=== PATIENT | female | born 1990 | race Caucasian/White ===

== ENCOUNTER 2020-02-09 15:12 | Emergency (ER) | payer OTHER, SELFPAY ==
[2020-02-09 15:16] VITALS: BP 126/78; PULSE 110; RESP 19; TEMP 36.1; O2SAT 98; BMI 29.9
[2020-02-09 15:35] VITALS: BP 126/78; PULSE 110; RESP 19; TEMP 36.1; O2SAT 98; O2SAT 99
--- NOTE | 2020-02-09 15:35 | EKG12_ITS ---
Test Reason : CP Blood Pressure : / mmHG Vent. Rate : 102 BPM Atrial Rate : 102 BPM P-R Int : 114 ms QRS Dur : 084 ms QT Int : 348 ms P-R-T Axes : 020 033 038 degrees QTc Int : 453 ms Sinus tachycardia Otherwise normal ECG Confirmed by PRADIP PRASAD, SABINE ([id number]), scientific editor NINA HOBBS ([id number]) on 02/14/2020 9:20:02 AM Referred By: CARLOS Confirmed By:SABINE MOSELEY MD
--- NOTE | 2020-02-09 15:36 | ED.VIS.GEN ---
History of Present Illness Chief Complaint: Shortness of Breath Informant: Patient Onset: Days Context: Gradual Onset Current Severity: Moderate Maximum Severity: Moderate Narrative: Patient presents secondary to cough and shortness of breath. She developed symptoms on January 31 and tested positive on the . She states today she feels like she can only take a half of breath. She starts to cough with any attempts to deep breathe. She does report temperature up to 102 last night. She is a history of asthma and uses a rescue inhaler as needed. She states last night she did not like that was helping her breathing. - Past Medical History (1) ADHD Status: Chronic (2) PCOS (polycystic ovarian syndrome) Status: Chronic (3) Asthma Status: Chronic Past Medical History - Allergies and Home Meds Allergies/Adverse Reactions: Allergies amoxicillin Allergy (Verified 02/09/20 15:15) Anaphylaxis Penicillins [PCN] Allergy (Verified 02/09/20 15:15) Anaphylaxis Primary Care Physician: Francis Young MD [Primary Care Provider] - Prior records reviewed: Yes Review of Systems General: Reports: Fever Eyes: Denies: Visual changes - bilaterally ENT: Reports: - - Loss of smell and taste Cardiovascular: Reports: Chest pain Respiratory: Reports: Dyspnea, Cough. Denies: Sputum Gastrointestinal: Denies: Abdominal pain, Vomiting, Diarrhea Genitourinary: Denies: Dysuria Musculoskeletal: Reports: Myalgias Skin: Denies: Rash Neurological: Denies: Parasthesia, Numbness Hematologic: Denies: Easy bruising, Easy bleeding Allergy: Denies: Uticaria Physical Exam Vital Signs/Narrative: Vital Signs Temp Pulse Resp BP Pulse Ox 02/09/20 15:35 97 F L 110 H 19 H 126/78 H 98 02/09/20 15:16 97 F L 110 H 19 H 126/78 H 98 Inital Vital Signs reviewed: Yes General: Well nourished, Well developed Head: Normocephalic ENT: Moist mucous membranes Neck: Supple Cardiovascular: Regular rhythm, Tachycardia Respiratory: No distress, CTA bilaterally, - - Tachypneic but lungs are clear. Abdomen: Soft, Nontender Extremities: Nontender Skin: Normal color Neurological: Alert, Oriented x3 Psychological: Normal affect Diagnostic/Tx/Re-eval Impressions Chest X-Ray 02/09/20 16:10 IMPRESSION: 1 mild infiltrate in the left lung base consistent with early pneumonic process of viral, atypical or typical nature. Electronically Signed: Luisa Grady MD at 16:34 EST , Service support , Chest CTA 02/09/20 17:08 IMPRESSION: Negative for pulmonary embolus. Normal thoracic aorta. Normal heart without pericardial effusion. Scattered lateral small to moderate primarily groundglass infiltrates throughout the upper and lower lung zones consistent with a pneumonic process of viral/atypical or typical etiology. Imaging features commonly reported with Covid 19 pneumonia. Negative for pleural effusion. No acute bone findings. No acute findings in the uppermost abdomen. Electronically Signed: Luisa Grady MD at 17:56 EST , Service support , 02/09/20 16:10 Chest 1 View (Portable) [RAD] Stat 02/09/20 17:08 CTA Chest W/WO Contrast [CT] Stat Laboratory Results 02/09/20 02/09/20 02/09/20 15:50 15:50 15:50 WBC 8.8 RBC 4.61 Hgb 13.6 Hct 41.5 MCV 90.0 MCH 29.5 MCHC 32.8 RDW Std Deviation 39.2 RDW Coeff of Luis A 12.0 Plt Count 303 MPV 9.8 Immature Gran % (Auto) 0.500 Neut % (Auto) 76.9 H Lymph % (Auto) 17.5 L Grainger % (Auto) 4.7 Eos % (Auto) 0.3 Baso % (Auto) 0.1 Absolute Neuts (auto) 6.8 Absolute Lymphs (auto) 1.54 Nucleated RBC % 0 D-Dimer Quant (PE/DVT) 0.73 H* Sodium 138 Potassium 3.6 Chloride 105 Carbon Dioxide 29.0 Anion Gap 4 L BUN 13 Creatinine 0.73 Estim Creat Clear Calc 82.41 Est GFR (MDRD) Af Amer 122 Est GFR (MDRD) Non-Af 101 BUN/Creatinine Ratio 17.9 Glucose 96 Lactic Acid Calcium 8.8 Troponin I < 0.015 Urine Color Urine Clarity Urine pH Ur Specific Pollard Urine Protein Urine Glucose (UA) Urine Ketones Urine Occult Blood Urine Nitrite Urine Bilirubin Urine Urobilinogen Ur Leukocyte Esterase Urine RBC Urine WBC Ur Squamous Epith Cells Urine Bacteria Urine Mucus 02/09/20 02/09/20 15:50 16:15 WBC RBC Hgb Hct MCV MCH MCHC RDW Std Deviation RDW Coeff of Luis A Plt Count MPV Immature Gran % (Auto) Neut % (Auto) Lymph % (Auto) Grainger % (Auto) Eos % (Auto) Baso % (Auto) Absolute Neuts (auto) Absolute Lymphs (auto) Nucleated RBC % D-Dimer Quant (PE/DVT) Sodium Potassium Chloride Carbon Dioxide Anion Gap BUN Creatinine Estim Creat Clear Calc Est GFR (MDRD) Af Amer Est GFR (MDRD) Non-Af BUN/Creatinine Ratio Glucose Lactic Acid 1.3 Calcium Troponin I Urine Color Yellow Urine Clarity Clear Urine pH 6.5 Ur Specific Pollard 1.010 Urine Protein Negative Urine Glucose (UA) Normal Urine Ketones Negative Urine Occult Blood 10 H Urine Nitrite Negative Urine Bilirubin Negative Urine Urobilinogen Normal Ur Leukocyte Esterase 25 H Urine RBC 0-5 SEEN Urine WBC 10-25 SEEN Ur Squamous Epith Cells 0-5 SEEN Urine Bacteria RARE Urine Mucus 0 SEEN - EKG Initial EKG Interpretation: Sinus Tachycardia - Sinus tach at 102 with no acute ischemia. - Medical Decision Making Patient was given Solu-Medrol and breathing treatment on arrival. Initial chest x-ray was read as possible left lower lobe infiltrate. D-dimer was elevated and patient was sent for CTA. This does reveal scattered infiltrate consistent with a viral pneumonia and COVID-19. On repeat examination heart rate is in the 90s, pulse ox is 100% on room air. Patient be treated with Decadron at home. She does have a pulse ox and will monitor her oxygen levels closely. She was given return instructions. ED Disposition - Plan for ED Patient: Disposition: Home or Assisted Living Diagnosis: COVID-19 Instructions: Coronavirus Disease 2019 (COVID-19): Overview, Coronavirus Disease 2019 (COVID-19): Caring for Yourself or Others Prescriptions: Dexamethasone [Decadron] 6 mg PO DAILY #10 tab Transmission Status: Pending to [facility] Referrals: Francis Young MD [Primary Care Provider] - 1 Week if not improving
--- NOTE | 2020-02-09 15:42 | NURSING ---
NO OLD EKGS
[2020-02-09] MEDS: MethylPREDNISolone 125 MG/2 ML Vial IV (15:52)
[2020-02-09] MEDS: Ketorolac 30 MG/ML Syringe IV (15:52)
[2020-02-09 16:08] LABS: Absolute Lymphocyte Count 1.54 X10^3/uL (0.83-4.51); Absolute Neutrophil Count 6.8 X10^3/uL (2.0-7.7); Basophil# 0.01 X10^3/uL; Basophil% 0.1 % (0-1); Eosinophil# 0.03 X10^3/uL; Eosinophils% 0.3 % (0-5); Hematocrit 41.5 % (37-47); Hemoglobin 13.6 g/dL (12.0-15.0); Lymphocyte # 1.54 X10^3/ul (4.0); Lymphocyte % 17.5 % (19-41); Mean Corp Hgb Conc 32.8 g/dL (32-36); Mean Corpuscular Hgb 29.5 pg (27.0-32.0); Mean Platelet Vol. 9.8 fl (6.2-12.0); Monocyte# 0.41 X10^3/uL; Monocyte% 4.7 % (0-10); NRBC Flagged by Analyzer 0 % (0-5); Neutrophil # 6.76 X10^3/uL (2.7-7.7); Neutrophil % 76.9 % (47-70); Platelet Count 303 K/mm3 (150-450); RBC Distribution Width SD 39.2 fl (35.1-43.9); Red Blood Count 4.61 M/mm3 (4.2-5.4); White Blood Count 8.8 K/mm3 (4.4-11.0)
--- NOTE | 2020-02-09 16:10 | RAD_ITS ---
STUDY: X-RAY CHEST REASON FOR EXAM: Female, 29 years old. COVID + ON WEDNESDAY, COUGH AND COVID S/S. CHEST TIGHTNESS SINCE THIS AM. UNABLE TO TAKE DEEP BREATHS. TECHNIQUE: 1 view COMPARISON: None. FINDINGS: Lung kelsey are moderately well expanded with 1 mild infiltrate in the left lung base above the costophrenic angle. Otherwise no demonstrated infiltrates. Negative for pleural effusion. Normal size heart. Normal mediastinum and krystyna. Normal visualized pulmonary arteries. Normal visualized aortic arch and descending thoracic aorta. Normal visualized thoracic spine. Normal visualized ribs, clavicles, and shoulders. There is no demonstrated abnormality of the visualized soft tissue structures of the upper abdomen. RAD/Chest 1 View (Portable) IMPRESSION: 1 mild infiltrate in the left lung base consistent with early pneumonic process of viral, atypical or typical nature. Electronically Signed: Luisa Grady MD at 16:34 EST , Service support ,
[2020-02-09 16:26] LABS: Mucous, Urine 0 SEEN /hpf (<or=2+)
[2020-02-09 16:32] LABS: Lactic Acid 1.3 mmol/L (0.4-1.9)
[2020-02-09 16:38] LABS: Anion Gap 4 (5-15); BUN 13 mg/dL (7-18); BUN/Creat Ratio 17.9 RATIO (10-20); Calcium,Total 8.8 mg/dL (8.5-10.1); Chloride 105 mmol/L (98-107); Creatinine, Serum 0.73 mg/dL (0.55-1.02); EST Glomerular Filtration Rate 101 mL/min (>60); Est Glom Filt Rate - Afr Amer 122 mL/min (>60); Estimated Creatinine Clearance 82.41 ml/min; Glucose 96 mg/dL (74-106); Potassium 3.6 mmol/L (3.5-5.1); Sodium Level 138 mmol/L (136-145)
[2020-02-09 16:45] LABS: Color, Urine Yellow (Yellow); Glucose, Dipstick Normal (Normal); Ketone-Dipstick Negative (Negative); Leukocyte Esterase-Dipstick 25 /ul (Negative); Nitrite-Dipstick Negative (Negative); Occult Blood-Urine 10 /ul (Negative); Protein-Dipstick Negative (Negative); Urine Bilirubin Dipstick Negative (Negative); Urine Clarity Clear (Clear); Urine Urobilinogen Normal (Normal); Urine pH 6.5 (5.0 - 8.0)
[2020-02-09 16:54] LABS: White Blood Cells 10-25 SEEN /hpf (0-5)
[2020-02-09 16:55] LABS: Bacteria RARE /hpf (None Seen); Red Blood Cells-Urine 0-5 SEEN /hpf (0-5); Squamous Epithelial Cells - UA 0-5 SEEN /hpf (5-10)
[2020-02-09 17:02] VITALS: BP 107/71; PULSE 86; RESP 16; TEMP 36.3; O2SAT 94
[2020-02-09 17:07] LABS: D-Dimer Quantitative (DVT/PE) 0.73 FEU/ug/m (0.27-0.49)
--- NOTE | 2020-02-09 17:08 | CT_ITS ---
STUDY: CTA CHEST REASON FOR EXAM: Female, 29 years old. SOB, cough, COVID +, asthma, elevated D-dimer. RADIATION DOSAGE (If Supplied By Facility): CTDIvol = ( 10.37 ) mGy, DLP = ( 309.66 ) mGycm TECHNIQUE: The examination was performed with the intravenous administration of IV 75mL [id number]. Post-processing of the angiographic images was performed, with multiplanar reformation and 3D reconstruction. Individualized dose optimization techniques were used for this CT. COMPARISON: Chest radiograph of 02/09/2020 FINDINGS: Normal enhancement of the main pulmonary artery and right and left pulmonary arteries. Normal enhancement of the bilateral peripheral pulmonary arteries. There is no demonstrated pulmonary embolism. Normal thoracic aorta and visualized great vessels. There is no demonstrated aortic dissection. Normal heart and pericardium. Normal mediastinum. Normal hilar regions. Normal visualized trachea and bronchi. The lungs are well expanded. Scattered bilateral small to moderate primarily groundglass infiltrates of the upper and lower lung zones more numerous in the lower lobes, left greater than right. Negative for substantial pleural effusion. Normal chest wall structures. Normal osseous structures. No acute findings in the uppermost abdomen. CT/CTA Chest W/WO Contrast IMPRESSION: Negative for pulmonary embolus. Normal thoracic aorta. Normal heart without pericardial effusion. Scattered lateral small to moderate primarily groundglass infiltrates throughout the upper and lower lung zones consistent with a pneumonic process of viral/atypical or typical etiology. Imaging features commonly reported with Covid 19 pneumonia. Negative for pleural effusion. No acute bone findings. No acute findings in the uppermost abdomen. Electronically Signed: Luisa Grady MD at 17:56 EST , Service support ,
[2020-02-09 17:13] VITALS: BP 112/69; PULSE 86; RESP 15; O2SAT 98
[2020-02-09 18:00] VITALS: BP 112/69; PULSE 86; RESP 15; TEMP 36.9; O2SAT 98
[2020-02-09 18:53] VITALS: O2SAT 98
== END 2020-02-09 19:26 | disposition home or self-care (01) ==
PROVIDERS: Emergency Provider Emergency Medicine; PCP Family Medicine
DX: U07.1 COVID-19 (principal); R79.89 Other specified abnormal findings of blood chemistry; E28.2 Polycystic ovarian syndrome; F90.9 Attention-deficit hyperactivity disorder, unspecified type; J45.909 Unspecified asthma, uncomplicated; Z79.899 Other long term (current) drug therapy
CPT/HCPCS: 71045; 71275; 80048; 81001; 83605; 84484; 85025; 85379; 93005; 96374; 96375; 99284; Q9967; A4216